=== PATIENT | male | born 1945 | race Caucasian/White ===

== ENCOUNTER 2017-11-06 12:10 | Outpatient (CLI) | payer MEDICARE ==
[2017-11-06 13:20] LABS: Hemoglobin 13.8 g/dL (14.0-18.0); Mean Corpuscular HGB CONC 32.6 g/dL (32.0-36.0); Mean Corpuscular Hemoglobin 31.1 pg (27.0-31.0); Mean Corpuscular Volume 95.3 fl (80.0-94.0); Mean Platelet Volume 8.6 fL (7.4-10.4); Platelet Count 171 thou/uL (130-400); Red Blood Cell (RBC) Count 4.45 mill/uL (4.70-6.10); White Blood Cell (WBC) Count 7.7 thou/uL (4.8-10.8)
[2017-11-06 13:29] LABS: INR-International Normal Ratio 1.1; PTT 30.4 SEC (22.9-36.1)
[2017-11-06 13:43] LABS: Anion Gap 13 mmol/L (10-20); BUN (Urea Nitrogen) 14 mg/dL (8.4-25.7); Calc. Creatinine Clearance 0 mL/min (70-130); Calcium 9.8 mg/dL (7.8-10.44); Carbon Dioxide 27 mmol/L (23-31); Chloride 105 mmol/L (98-107); Estimated GFR-MDRD Greater than 90; Glucose 82 mg/dL (83-110); Potassium 4.9 mmol/L (3.5-5.1); Sodium 140 mmol/L (136-145)
== END 2017-11-06 12:11 | disposition home or self-care (01) ==
LOC: LABBT 12:10
PROVIDERS: ATTEND Surgery
DX: Z01.818 Encounter for other preprocedural examination (principal); M54.16 Radiculopathy, lumbar region; M48.061 Spinal stenosis, lumbar region without neurogenic claudication
CPT/HCPCS: 80048; 85027; 85610; 85730; 93005; 93010

== ENCOUNTER 2017-11-12 05:44 | Day surgery (SDC) | payer MEDICARE ==
[2017-11-06 13:05] VITALS: BMI 21.9
[2017-11-12] MEDS ORDERED: Sodium Chloride 0.9% 10 ML ONE (06:34)
[2017-11-12] MEDS ORDERED: Bacitracin Zinc Ointment 30 gm TUBE ONE (06:35)
[2017-11-12] MEDS ORDERED: Thrombin 5000 UNITS/5 ML VIAL ONE (06:35)
[2017-11-12] MEDS ORDERED: CEFAZOLIN/Water 2 GM/20 ML SYRINGE ONE (06:56)
[2017-11-12] MEDS ORDERED: Fentanyl 250 MCG/5 ML VIAL ONE ×2 (06:59→11:03)
--- NOTE | 2017-11-12 10:40 | OP ---
DATE OF PROCEDURE: 11/12/2017 LOCATION: OR 11. WOUND TYPE: Type 1 wound. SURGEON: Smooth Vasquez M.D. [employer]: Orlin Hernandez PA-C. 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 POSTPROCEDURE DIAGNOSIS: L1-L2, L2-L3 stenosis with low back and left greater than right lower extre mity pain with scoliosis. PROCEDURES: L1-L2, L2-L3 laminectomies, partial facetectomies and foraminotomies over the L1, L2, an d L3 nerve roots bilaterally. DESCRIPTION OF PROCEDURE: After informed consent was obtained from the patient, the patient was brou ght to OR 11. Proper patient pause and identification was carried out. He was placed under excellen t general endotracheal anesthesia and positioned prone on the operating table. All appropriate point s were padded. We identified L1, L2, and L3 segments. A linear dean was made over this region. Thi s area was sterilely cleansed, prepared, and draped. Proper patient pause and identification was car ried out. The wound was then opened with a combination of sharp, monopolar and blunt dissection expo sing L1, L2, and L3 segments. Localization film confirmed our area of interest. We then performed L 1, L2, and L3 laminectomies, partial facetectomies and foraminotomies over the L1, L2, and L3 nerve r oots with excellent decompression of the common dural tube and the nerve roots. Hemostasis was maxim ized throughout. There was no spinal fluid leak. The wound was copiously irrigated and closed in an atomic layers following the sprinkling of vancomycin powder. The patient then emerged from anesthesi a.
[2017-11-12] MEDS ORDERED: traMADol HCl 50 MG TAB PO PRN (10:51)
[2017-11-12] MEDS ORDERED: Acetaminophen 325 MG TAB PO PRN (10:51)
[2017-11-12] MEDS ORDERED: tiZANidine HCl 4 MG TAB PO PRN (10:51)
[2017-11-12] MEDS ORDERED: Milk Of Magnesia 30 ML UDCUP PO PRN (10:51)
[2017-11-12] MEDS ORDERED: Promethazine HCl 25 MG/ML VIAL IM PRN (10:51)
[2017-11-12] MEDS ORDERED: Bisacodyl 10 MG SUPP PR PRN (10:51)
[2017-11-12] MEDS ORDERED: Acetaminophen/Codeine 30-300mg Tablet PO PRN (10:51)
[2017-11-12] MEDS ORDERED: Fleet Enema 133 ML BOT PR PRN (10:51)
[2017-11-12] MEDS ORDERED: Mag-Al 1200 mg/1200 mg/30 ML UDCUP PO PRN (10:51)
[2017-11-12] MEDS ORDERED: Ondansetron HCl/PF 4 MG/2 ML Vial IVP PRN (10:57)
[2017-11-12] MEDS ORDERED: Morphine Sulfate 2 MG/ML SYRINGE SLOW IVP PRN (10:57)
[2017-11-12] MEDS: Sodium Chloride 0.9% 1,000 ML IV SCH (12:30)
[2017-11-12] MEDS ORDERED: Gabapentin 300 MG CAP PO PRN (14:00)
[2017-11-12] MEDS: CEFAZOLIN/Water 2 GM/20 ML SYRINGE SLOW IVP SCH ×2 (15:24→23:50)
[2017-11-12] MEDS: HYDROcodone/Acetaminophen 7.5/325 mg Tablet PO PRN (23:49)
[2017-11-13] MEDS: Sodium Chloride 0.9% 1,000 ML IV SCH (00:34)
[2017-11-13 07:36] VITALS: BP 144/71; TEMP 99.8
[2017-11-13] MEDS: HYDROcodone/Acetaminophen 7.5/325 mg Tablet PO PRN (08:41)
[2017-11-13] MEDS ORDERED: Multivitamin W/ Minerals 1 TAB PO SCH (09:00)
[2017-11-13] MEDS ORDERED: Calcium Carbonate + Vit D 1 TAB PO SCH (09:00)
[2017-11-13] MEDS ORDERED: Finasteride 5 MG TAB PO SCH (09:00)
[2017-11-13] MEDS ORDERED: Tamsulosin HCl 0.4 MG CAP PO SCH (09:00)
--- NOTE | 2017-11-13 09:04 | PRG ---
DATE OF SERVICE: 11/13/2017 Orlin Hernandez PA-C dictating for Dr. Smooth Vasquez. Mr. Baez is now postoperative day #1, having undergone L1-L3 lumbar laminectomies with Dr. Vasquez. The patient states overall he is feeling very well postoperatively. He does have some occasional lef t greater than the right groin pain, but states he does not currently have any leg pain and the numbn ess and tingling he had in the bilateral feet has significantly improved postoperatively. He does co mplain of incisional back pain only. He has good strength in the bilateral lower extremities with in tact sensation to light touch throughout. He has been voiding, ambulating, tolerating a solid diet, and his pain is controlled with oral medications. At this time, he has met criteria for discharge. I reviewed appropriate postoperative activity restrictions with both the patient and his and we will plan for dismissal later today. Please call with any questions or changes in the patient's neur ologic status.
== END 2017-11-13 11:27 | disposition home or self-care (01) ==
LOC: SDC 05:44 → SURG B 10:55 → SDC 11-13 11:27
PROVIDERS: ATTEND Surgery
PROC: 01NB0ZZ Release Lumbar Nerve, Open Approach (ICD-10-PCS; principal; 2017-11-12)
DX: M48.061 Spinal stenosis, lumbar region without neurogenic claudication (principal); M54.16 Radiculopathy, lumbar region; M41.9 Scoliosis, unspecified; G62.9 Polyneuropathy, unspecified; M19.90 Unspecified osteoarthritis, unspecified site; N40.0 Benign prostatic hyperplasia without lower urinary tract symptoms; Z87.891 Personal history of nicotine dependence; Z79.899 Other long term (current) drug therapy
CPT/HCPCS: 76001; 96374; A4216; J3010; J3370; J3490